=== PATIENT | male | born 1960 | race Caucasian/White ===

== ENCOUNTER 2017-01-03 07:11 | Day surgery (SDC) | payer OTHER ==
--- NOTE | ~2017-01-03 | EGD ---
EGD REPORT [facility] [address] [place] [address] NAME: CLEVELAND JOHNSON : [birth year] STATUS : REG [facility]#: [id number] AGE: 56 ADM/REG DATE : 01/03/17 MR#: [id number] REPORT SERV DATE: 01/03/17 DICTATED BY: JODY ASHTON DATE: 01/03/17 REPORT STATUS : Draft TRANSCRIBED BY: [facility] DATE: 01/03/17 [facility] Center Patient Name: Cleveland Johnson Date of : 1960 Attending MD: JODY ASHTON MD Procedure Date No Time: 01/03/2017 Procedure: Colonoscopy Indications: Screening for colorectal malignant neoplasm Referring MD: SHAYNA WARD Medicines: Monitored Anesthesia Care Complications: No immediate complications. Procedure: Pre-Anesthesia Assessment: - ASA Grade Assessment: III - A patient with severe systemic disease. After I obtained informed consent, the scope was passed under direct vision. Throughout the procedure, the patient's blood pressure, pulse, and oxygen saturations were monitored continuously. The CF [id number] was introduced through the anus and advanced to the terminal ileum, with identification of the appendiceal orifice and IC valve. The colonoscopy was performed without difficulty. The patient tolerated the procedure well. The quality of the bowel preparation was good. Findings: The digital rectal exam was normal. Pertinent negatives include no palpable rectal lesions. The terminal ileum appeared normal. Two sessile polyps were found in the transverse colon. The polyps were 3 to 5 mm in size. These polyps were removed with a cold biopsy forceps. Resection and retrieval were complete. Hemorrhoids were found during retroflexion and were mild. Impression: - The examined portion of the ileum was normal. - Two 3 to 5 mm polyps in the transverse colon. Resected and retrieved. - Hemorrhoids. Recommendation: - Patient has a contact number available for emergencies. The signs and symptoms of potential delayed complications were discussed with the patient. Return to normal activities tomorrow. Written discharge instructions were provided to the patient. - Regular diet. - Continue present medications. EGD REPORT [facility] [address] [place]. [address] NAME: CLEVELAND JOHNSON : [birth year] STATUS : REG [facility]#: [id number] AGE: 56 ADM/REG DATE : 01/03/17 MR#: [id number] REPORT SERV DATE: 01/03/17 DICTATED BY: JODY ASHTON DATE: 01/03/17 REPORT STATUS : Draft TRANSCRIBED BY: [employer] DATE: 01/03/17 - Await pathology results. - Repeat colonoscopy for surveillance based on pathology results. - Return to GI clinic PRN. Procedure Code(s): --- Professional --- 93857, Colonoscopy, flexible, proximal to splenic flexure; with biopsy, single or multiple Diagnosis Code(s): --- Professional --- K64.9, Unspecified hemorrhoids D12.3, Benign neoplasm of transverse colon Z12.11, Encounter for screening for malignant neoplasm of colon CPT copyright 2013 [employer]. All rights reserved. The codes documented in this report are preliminary and upon bus steward review may be revised to meet current compliance requirements. JODY ASHTON MD 01/03/2017 9:10 AM This report has been signed electronically. Number of Addenda: 0 Note Initiated On: 01/03/2017 8:39 AM Scope Withdrawal Time 0 hours 10 minutes 17 seconds [address] [place] [address]
[~2017-01-03 07:11] MED LIST: DIOV80 PO; MULTIPLE VIT PO; PREV15 PO
== END 2017-01-03 23:59 | disposition home or self-care (01) ==
LOC: DMU 07:11
PROVIDERS: Internal Medicine Gastroenterology
PROC: 0DBL8ZX Excision of Transverse Colon, Via Natural or Artificial Opening Endoscopic, Diagnostic (ICD-10-PCS; principal; 2017-01-03 08:30)
DX: Z12.11 Encounter for screening for malignant neoplasm of colon (principal); D12.3 Benign neoplasm of transverse colon; K64.9 Unspecified hemorrhoids; I10 Essential (primary) hypertension; K21.9 Gastro-esophageal reflux disease without esophagitis; E66.01 Morbid (severe) obesity due to excess calories; Z79.899 Other long term (current) drug therapy; Z88.1 Allergy status to other antibiotic agents; Z87.442 Personal history of urinary calculi
CPT/HCPCS: 88305